=== PATIENT | female | born 1955 | race Caucasian/White ===

== ENCOUNTER → 2020-09-19 | Outpatient (CLI) | payer MEDICARE, OTHER ==
--- NOTE | 2020-09-19 14:58 | KCIC ---
RS Compliance Statement: One or more of the following individualized dose reduction techniques were utilized for this examination: 1. Automated exposure control 2. Adjustment of the mA and/or kV according to patient size 3. Use of iterative reconstruction technique Coronary calcium score CT chest without contrast History: 65-year-old female, cardiovascular screening. Smoking history. Hypertension. No family history of CAD. Technique: With retrospective electrocardiogram gating axial reconstructed noncontrast images of the chest at the level of the coronary arteries was performed. Images were post processed on workstation and calcium score calculated using the modified Agatston Janowitz protocol. Findings: Total coronary calcium score is 1407.1. This is an extensive plaque burden and very high cardiovascular disease risk. This is based on the calcium score of 0 of the left main coronary artery, 597.6 of the left anterior descending artery, score of 471.3 of the left circumflex artery and score of 338.1 of the right coronary artery. Noncoronary findings demonstrate great vessels are normal caliber. Cardiac size is normal, trace pericardial effusion. Visualized upper abdomen is unremarkable. The visualized lungs are clear. No pleural abnormality is seen. IMPRESSION: Patient's total calcium score is 1407. Electronically signed by: Garett Hinton MD (09/19/2020 2:55 PM) [facility]
== END ==
LOC: KCIC CT 09:04
PROVIDERS: ATTEND Family Medicine
DX: Z13.6 Encounter for screening for cardiovascular disorders (principal)
CPT/HCPCS: 75571